=== PATIENT | male | born 1935 | race Caucasian/White ===

== ENCOUNTER 2017-02-08 20:08 | Emergency (ER) | payer OTHER ==
[~2017-02-08] VITALS: Ht 177.8 cm; Wt 92.9 kg
[~2017-02-08 20:08] MED LIST: CYANOCOBALAM1000 MCG PO; FISH OIL 1,0001 EAC7 PO; PLAVIX75 MG PO; PROTONIX40 MG PO; RANITIDINE HCL150 MG PO; SIMVASTATIN40 MG PO; ST. JOSEPH ASPI81 MG PO; TERAZOSIN HCL5 MG PO; VITAMIN D-32000 UNI2 PO
[2017-02-08 22:04] LABS: HEMATOCRIT 41.1 % (38.0-50.0); MCH 29.5 PG (29.0-34.0); MCHC 33.1 G/DL (30.0-36.0); MCV 89.2 FL (86-99); MEAN PLAT.VOLUME 10.4 uM^3 (9.0-12.4); PLATELET COUNT 205 K/uL (156-360); RBC DIS.WIDTH-CV 12.7 % (11.8-14.6); RBC DIS.WIDTH-SD 41.4 % (39-53); RED BLOOD COUNT 4.61 M/uL (4.00-5.50); WHITE BLOOD COUNT 6.8 K/uL (4.1-10.2)
[2017-02-08 22:12] LABS: PROTHROMBIN TIME 10.9 SEC (10.2-12.9)
[2017-02-08 22:46] VITALS: BP 140/86
[2017-02-09] MEDS ORDERED: KEFLEX500 MG PO (00:07)
== END 2017-02-08 22:47 | disposition home or self-care (01) ==
LOC: EME → EDBD 20:08 → EME 22:47
PROVIDERS: Emergency Medicine
PROC: 2Y41X5Z Packing of Nasal Region using Packing Material (ICD-10-PCS; principal; 2017-02-08)
DX: R04.0 Epistaxis (principal); J44.9 Chronic obstructive pulmonary disease, unspecified; E78.5 Hyperlipidemia, unspecified; Z87.891 Personal history of nicotine dependence
CPT/HCPCS: 85027; 85610; 99281; 99283

== ENCOUNTER 2017-03-13 11:43 | Emergency (ER) | payer OTHER ==
[~2017-03-13] VITALS: Ht 175.3 cm; Wt 92.2 kg
[~2017-03-13 11:43] MED LIST changes: +KEFLEX500 MG PO
[2017-03-13 13:24] LABS: ADD MIUA? YES; BILIRUBIN NEGATIVE; BLOOD NEGATIVE; COLOR YELLOW ((YELLOW)); GLUCOSE (STRIP) NEGATIVE; KETONES NEGATIVE; LEUKOCYTES NEGATIVE; NITRITE NEGATIVE; PROTEIN (STRIP) NEGATIVE; SPECIFIC GRAVITY 1.015 (1.000-1.030); UROBILINOGEN 0.2 MG/DL (0.2-1.0)
[2017-03-13 13:25] LABS: EOSINOPHIL (%) 0.7 % (0-5); EOSINOPHIL COUNT 0.1 K/uL (0-0.3); HEMATOCRIT 42.3 % (38.0-50.0); IMMATURE GRANULOCYTE (%) 0.4 % (0.0-0.7); INSTRUMENT ABS NEUTROPHIL CT 5.4 K/uL; MCH 29.4 PG (29.0-34.0); MCHC 32.4 G/DL (30.0-36.0); MCV 90.8 FL (86-99); MEAN PLAT.VOLUME 10.1 uM^3 (9.0-12.4); MONOCYTE (%) 7.2 % (3-12); MONOCYTE COUNT 0.5 K/uL (0-0.8); NEUTROPHIL (%) 77.4 % (45-76); NEUTROPHIL COUNT 5.4 K/uL (1.8-6.4); PLATELET COUNT 210 K/uL (156-360); RBC DIS.WIDTH-CV 12.9 % (11.8-14.6); RBC DIS.WIDTH-SD 42.8 % (39-53); RED BLOOD COUNT 4.66 M/uL (4.00-5.50)
[2017-03-13 13:27] LABS: BACTERIA RARE /HPF; EPITHELIAL CELLS NONE SEEN /HPF; HYALINE CASTS 0-5 /LPF; MUCUS TRACE /LPF; RED BLOOD CELLS 0-5 /HPF (0-5); UCUL ADDED? NO; WHITE BLOOD CELLS 0-5 /HPF (0-5)
[2017-03-13 13:38] LABS: CHLORIDE 104 mEq/L (99-109); POTASSIUM 4.2 mEq/L (3.7-5.4); SODIUM 139 mEq/L (136-147)
[2017-03-13 13:39] LABS: MAGNESIUM 2.1 mg/dL (1.3-2.7)
[2017-03-13 13:40] LABS: GLUCOSE 99 mg/dL (70-99)
[2017-03-13 13:42] LABS: ANION GAP 7 MEQ/L (2-14); TOTAL BILIRUBIN 1.2 mg/dL (0.0-1.0)
[2017-03-13 13:44] LABS: ALKALINE PHOSPHATASE 63 IU/L (3-129); GFR ESTIMATE (CALCULATED) > 59 mL/min/
[2017-03-13 13:45] LABS: UREA NITROGEN (BUN) 17 mg/dL (9-23)
[2017-03-13 13:46] LABS: TROP-I INTERPRETATION NEGATIVE; TROPONIN-I 0.04 ng/mL (0.0-0.30)
[2017-03-13 14:44] VITALS: BP 107/69
== END 2017-03-13 14:44 | disposition home or self-care (01) ==
LOC: EME 11:43
PROVIDERS: Physician Assistant Medical
DX: I95.89 Other hypotension (principal); J44.9 Chronic obstructive pulmonary disease, unspecified; E78.5 Hyperlipidemia, unspecified; Z86.73 Personal history of transient ischemic attack (TIA), and cerebral infarction without residual deficits; Z87.891 Personal history of nicotine dependence
CPT/HCPCS: 80053; 81003; 83735; 84484; 85025; 93005; 99281; 99284; J7030